=== PATIENT | male | born 1985 | race Caucasian/White ===

== ENCOUNTER → 2016-06-16 | Outpatient (REF) | payer OTHER | LOC: M LAB REF 13:10 | PROVIDERS: ATTEND Physician Assistant | DX: J04.0 Acute laryngitis (principal) ==

== ENCOUNTER 2018-11-03 16:21 | Emergency (ER) | payer BC, OTHER ==
[~2018-11-03] VITALS: Ht 193 cm; Wt 131.8 kg
[2018-11-03 16:22] VITALS: BP 144/80
[2018-11-03] MEDS ORDERED: NAPR220C14 PO (16:25)
[2018-11-03] MEDS ORDERED: TYLETAB14 PO (16:25)
[2018-11-03] MEDS ORDERED: PENI500T PO (16:25)
[2018-11-03] MEDS ORDERED: PERC5TAB12 PO (17:08)
== END 2018-11-03 17:16 | disposition home or self-care (01) ==
LOC: M ED 16:21
DX: K08.89 Other specified disorders of teeth and supporting structures (principal)

== ENCOUNTER → 2022-03-22 | Outpatient (CLI) | payer BC, OTHER ==
[~2022-03-22] MED LIST: NAPR220C14 PO; PENI500T PO; PERC5TAB12 PO; TYLETAB14 PO
[2022-03-22 16:10] LABS: BASO # 0.1 10^3/uL (0.0-0.2); BASO % 0.5 % (0.0-1.0); EOS # 0.2 10^3/uL (0.0-0.5); EOS % 1.6 % (0.0-3.0); HEMATOCRIT 46.4 % (42.0-52.0); HEMOGLOBIN 15.8 g/dl (13.5-17.5); LYMPH # 1.5 10^3/uL (1.5-5.0); LYMPH % 16.3 % (24.0-44.0); MEAN CORPUSCULAR HEMOGLOBIN 30.3 pg (27.0-33.0); MEAN CORPUSCULAR HGB CONC 34.1 g/dl (32.0-36.5); MEAN CORPUSCULAR VOLUME 88.9 fl (80.0-96.0); MONO # 1.1 10^3/uL (0.0-0.8); MONO % 11.5 % (2.0-8.0); NEUTROPHILS # 6.4 10^3/uL (1.5-8.5); NEUTROPHILS % 69.9 % (36.0-66.0); PLATELET COUNT, AUTOMATED 275 10^3/uL (150-450); RED BLOOD COUNT 5.22 10^6/uL (4.30-6.10); WHITE BLOOD COUNT 9.1 10^3/uL (4.0-10.0)
[2022-03-22 16:41] LABS: LIPASE 72 U/L (12-53)
[2022-03-22 16:43] LABS: ALKALINE PHOSPHATASE 62 U/L (46-116); ALT/SGPT 48 U/L (7.0-40); AMYLASE 56 U/L (30-118); AST/SGOT 31 U/L (<34); BILIRUBIN,TOTAL 1.8 MG/DL (0.3-1.2); BLOOD UREA NITROGEN 15 MG/DL (9-23); CALCIUM LEVEL 9.1 MG/DL (8.5-10.1); CARBON DIOXIDE LEVEL 29 MMOL/L (20-31); CHLORIDE LEVEL 101 MMOL/L (98-107); CREATININE FOR GFR 0.95 MG/DL (0.70-1.30); GLOMERULAR FILTRATION RATE > 60.0 (>60); GLUCOSE, FASTING 86 MG/DL (60-100); POTASSIUM SERUM 4.6 MMOL/L (3.5-5.1); SODIUM LEVEL 137 MMOL/L (136-145); TOTAL PROTEIN 7.5 G/DL (5.7-8.2)
== END ==
LOC: M LAB 15:38
PROVIDERS: ATTEND Physician Assistant
DX: R10.811 Right upper quadrant abdominal tenderness (principal)

== ENCOUNTER → 2022-04-07 | Outpatient (REF) | payer BC, OTHER | LOC: M LAB REF 12:19 | PROVIDERS: ATTEND Physician Assistant Medical | DX: R10.11 Right upper quadrant pain (principal) ==

== ENCOUNTER → 2022-04-23 | Outpatient (CLI) | payer BC, OTHER | LOC: M RAD 07:17 | PROVIDERS: ATTEND Physician Assistant Medical | DX: R10.11 Right upper quadrant pain (principal) ==